=== PATIENT | female | born 1995 | race Caucasian/White ===

== ENCOUNTER 2018-04-14 08:48 | Day surgery (SDC) | payer BC ==
[~2018-04-14 08:48] MED LIST: ROCURONIUM 50 MG INJ
[2018-04-14] MEDS ORDERED: MIDAZOLAM 1 MG/ML 2 ML INJ (10:54)
[2018-04-14] MEDS: BUPIVACAINE 0.25% (MPF) 30 ML INJ (11:21)
[2018-04-14] MEDS ORDERED: LIDOCAINE 2% (SDV) 5 ML INJ (11:42)
[2018-04-14] MEDS ORDERED: GLYCOPYRROLATE 0.4 MG INJ (11:42)
[2018-04-14] MEDS ORDERED: PROPOFOL 20 ML (11:42)
[2018-04-14] MEDS ORDERED: NEOSTIGMINE 3 MG/3 ML SYRINGE (11:42)
[2018-04-14] MEDS ORDERED: CEFAZOLIN 1 GM INJ (11:42)
[2018-04-14] MEDS ORDERED: KETOROLAC 30 MG INJ (11:55)
[2018-04-14] MEDS ORDERED: ONDANSETRON 4 MG INJ ×2 (11:58→12:15)
[2018-04-14] MEDS ORDERED: FENTAnyl 50 MCG/ML VIAL (11:58)
[2018-04-14] MEDS: HYDROCODONE/APAP (5/325) TAB PO (12:11)
[2018-04-14] MEDS ORDERED: MEPERIDINE 25 MG INJ (12:15)
[2018-04-14] MEDS ORDERED: MEPERIDINE 25 MG INJ IV (12:30)
[2018-04-14] MEDS ORDERED: ONDANSETRON 4 MG INJ IV (12:30)
[2018-04-14] MEDS ORDERED: HYDROmorphONE 1 MG/5 ML IV SYRINGE IV (12:30)
[2018-04-14] MEDS ORDERED: METOCLOPRAMIDE 10 MG INJ IV (12:30)
[2018-04-14] MEDS ORDERED: DIPHENHYDRAMINE 50 MG INJ IV (12:30)
[2018-04-14] MEDS ORDERED: OXYCODONE/ACETAMINOPHEN (5/325) TAB PO (12:30)
[2018-04-14] MEDS ORDERED: FENTAnyl 50 MCG/ML VIAL IV (12:30)
[2018-04-14] MEDS: HYDROmorphONE 1 MG/5 ML IV SYRINGE IV ×2 (12:33→12:41)
== END 2018-04-14 13:20 | disposition home or self-care (01) ==
LOC: SDS 08:48
DX: K80.10 Calculus of gallbladder with chronic cholecystitis without obstruction (principal)
CPT/HCPCS: 47562; 88304